=== PATIENT | male | born 1935 | race Caucasian/White ===

== ENCOUNTER 2021-06-19 09:01 | Inpatient (IN) | payer OTHER, MEDICAID ==
[~2021-06-19] VITALS: Ht 160 cm; Wt 63.5 kg
[2021-06-19 09:01] VITALS: BP_SYST 153
[2021-06-19] MEDS ORDERED: NACL 0.9% 1,000 ML IV ONE (09:30)
[2021-06-19 10:51] LABS: BASOPHILS % (AUTO) 0.4 % (0.0-2.0); EOSINOPHILS # (AUTO) 0.2 K/uL (0.0-0.4); EOSINOPHILS % (AUTO) 1.9 % (0.0-4.0); HEMATOCRIT 38.4 % (36-54); HEMOGLOBIN 12.9 g/dL (14.0-18.0); LYMPHOCYTES # (AUTO) 0.8 K/uL (1.0-5.5); LYMPHOCYTES % (AUTO) 9.1 % (20.5-51.5); MEAN CORPUSCULAR HEMOGLOBIN 31 pg (27-31); MEAN CORPUSCULAR HGB CONC 34 % (32-36); MEAN CORPUSCULAR VOLUME 91 fL (79.0-98.0); MONOCYTES # (AUTO) 0.4 K/uL (0.0-1.0); MONOCYTES % (AUTO) 4.4 % (1.7-9.3); NEUTROPHILS # (AUTO) 7.1 K/uL (1.8-7.7); NEUTROPHILS % (AUTO) 84.2 % (40.0-70.0); PLATELET COUNT (AUTO) 214 K/uL (130-430); RED BLOOD CELL COUNT(AUTO) 4.24 MIL/uL (4.2-6.2); RED CELL DISTRIBUTION WIDTH 14.3 % (9.0-15.0); WHITE BLOOD COUNT (AUTO) 8.4 K/uL (4.8-10.8)
[2021-06-19 11:05] LABS: ANION GAP 7 (5-15); CALCIUM 9.6 mg/dL (8.4-11.0); CHLORIDE 104 mmol/L (98-107); CREATININE 0.94 mg/dL (0.55-1.30); GLUCOSE 257 mg/dL (70-99); POTASSIUM 4.3 mmol/L (3.5-5.1); SODIUM SERUM 140 mmol/L (136-145); UREA NITROGEN, BLOOD 25 mg/dL (8-21)
[2021-06-19 11:09] LABS: ALANINE AMINOTRANSFERASE 19 U/L (12-78); ALBUMIN 3.5 g/dL (3.4-4.8); ASPARTATE AMINOTRANSFERASE 17 U/L (10-37); TOTAL BILIRUBIN 0.3 mg/dL (0.0-1.0)
[2021-06-19 11:13] LABS: ACETAMINOPHEN < 1 ug/mL (1-30)
[2021-06-19 11:24] LABS: INR 1.3 (0.80-1.20); PROTHROMBIN TIME 13.6 SECS (9.5-12.5)
[2021-06-19 11:32] LABS: ALCOHOL, BLOOD < 3 mg/dL (<10)
[2021-06-19] MEDS ORDERED: FAMO20TA8 PO (13:31)
[2021-06-19] MEDS ORDERED: ONDA-8 TL (13:31)
[2021-06-19] MEDS ORDERED: TEMA15CA5 PO (13:31)
[2021-06-19] MEDS ORDERED: HYDR-3917 PO (13:31)
[2021-06-19] MEDS ORDERED: CARB1TAB21 PO (13:31)
[2021-06-19] MEDS ORDERED: SSNOVOLOG SUBCUT (13:31)
[2021-06-19] MEDS ORDERED: LACT10SO6 PO (13:31)
[2021-06-19] MEDS ORDERED: ACET325T PO (13:31)
[2021-06-19] MEDS ORDERED: ENTA200T30 PO (13:31)
[2021-06-19] MEDS ORDERED: DOCU-144 PO (13:31)
[2021-06-19] MEDS ORDERED: NEU300 PO (13:31)
[2021-06-19] MEDS ORDERED: traMADol HCL HCL 50 MG TABLET (ULTRAM) PO ONE (14:00)
[2021-06-19 17:24] VITALS: BP_SYST 139
[2021-06-19 20:00] VITALS: BP_SYST 129
[2021-06-19] MEDS ORDERED: ACETAMINOPHEN 325 MG TABLET PO SCH (22:45)
[2021-06-19] MEDS ORDERED: HYDROcodone/ACETAMIN 5-325 MG TAB (NORCO/ VICODIN) PO PRN (22:45)
[2021-06-19] MEDS ORDERED: ONDANSETRON HCL 4 MG/2 ML VIAL IVP PRN (22:45)
[2021-06-19] MEDS ORDERED: ONDANSETRON 4 MG ODT TAB TL PRN (22:45)
[2021-06-19] MEDS ORDERED: NALOXONE HCL 0.4 MG/ML AMP (NARCAN) IVP PRN (22:45)
[2021-06-19] MEDS ORDERED: TEMAZEPAM 15 MG CAPSULE PO SCH (22:45)
[2021-06-20 00:13] VITALS: BP_SYST 148
[2021-06-20 01:41] VITALS: BP_SYST 129
[2021-06-20] MEDS: NORMAL SALINE 5 ML DISP.SYRIN IVF SCH ×3 (06:00→21:36)
[2021-06-20] MEDS: INSULIN REGULAR, HUMAN 100 UNITS/ML, 10 ML VIAL (humuLIN R) SUBCUT PRN ×4 (06:15→21:44)
[2021-06-20 06:54] LABS: BASOPHILS % (AUTO) 0.8 % (0.0-2.0); EOSINOPHILS # (AUTO) 0.4 K/uL (0.0-0.4); EOSINOPHILS % (AUTO) 6.3 % (0.0-4.0); HEMATOCRIT 38.3 % (36-54); LYMPHOCYTES # (AUTO) 1.4 K/uL (1.0-5.5); LYMPHOCYTES % (AUTO) 22.7 % (20.5-51.5); MEAN CORPUSCULAR HEMOGLOBIN 30 pg (27-31); MEAN CORPUSCULAR HGB CONC 34 % (32-36); MEAN CORPUSCULAR VOLUME 90 fL (79.0-98.0); MONOCYTES # (AUTO) 0.4 K/uL (0.0-1.0); MONOCYTES % (AUTO) 6.5 % (1.7-9.3); NEUTROPHILS # (AUTO) 3.9 K/uL (1.8-7.7); NEUTROPHILS % (AUTO) 63.7 % (40.0-70.0); PLATELET COUNT (AUTO) 222 K/uL (130-430); RED BLOOD CELL COUNT(AUTO) 4.28 MIL/uL (4.2-6.2); WHITE BLOOD COUNT (AUTO) 6.1 K/uL (4.8-10.8)
[2021-06-20 08:00] VITALS: BP_SYST 118
[2021-06-20] MEDS: GABAPENTIN 300 MG CAPSULE PO SCH ×2 (08:26→21:35)
[2021-06-20] MEDS: DOCUSATE SODIUM 100 MG CAPSULE PO SCH ×2 (08:28→21:00)
[2021-06-20] MEDS: CARBIDOPA/LEVODOPA 25/100 MG TABLET PO SCH ×3 (08:28→15:00)
[2021-06-20] MEDS ORDERED: CARBIDOPA/LEVODOPA 25/100 MG TABLET ONE (08:52)
[2021-06-20 08:54] LABS: ALANINE AMINOTRANSFERASE 21 U/L (12-78); ALBUMIN 3.3 g/dL (3.4-4.8); ANION GAP 9 (5-15); ASPARTATE AMINOTRANSFERASE 19 U/L (10-37); CALCIUM 9.1 mg/dL (8.4-11.0); CHLORIDE 103 mmol/L (98-107); CREATININE 0.76 mg/dL (0.55-1.30); GLUCOSE 262 mg/dL (70-99); PHOSPHORUS 2.8 mg/dL (2.7-4.5); POTASSIUM 4.1 mmol/L (3.5-5.1); SODIUM SERUM 140 mmol/L (136-145); TOTAL BILIRUBIN 0.4 mg/dL (0.0-1.0); UREA NITROGEN, BLOOD 19 mg/dL (8-21)
[2021-06-20] MEDS ORDERED: LACTULOSE 20 GM/30 ML UDC PO SCH (09:00)
[2021-06-20] MEDS ORDERED: COMTAN 200 MG TAB PO SCH (09:00)
[2021-06-20] MEDS ORDERED: FAMOTIDINE 20 MG TABLET PO SCH (09:00)
[2021-06-20 12:16] VITALS: BP_SYST 132
[2021-06-20 16:23] VITALS: BP_SYST 121
[2021-06-20 20:00] VITALS: BP_SYST 118
[2021-06-20] MEDS ORDERED: CARBIDOPA/LEVODOPA 25/250 MG TABLET PO SCH (21:00)
[2021-06-21 00:30] VITALS: BP_SYST 133
[2021-06-21] MEDS: NORMAL SALINE 5 ML DISP.SYRIN IVF SCH (05:52)
[2021-06-21] MEDS: INSULIN REGULAR, HUMAN 100 UNITS/ML, 10 ML VIAL (humuLIN R) SUBCUT PRN (05:53)
[2021-06-21 07:51] LABS: BASOPHILS % (AUTO) 0.5 % (0.0-2.0); EOSINOPHILS # (AUTO) 0.4 K/uL (0.0-0.4); HEMATOCRIT 37.3 % (36-54); HEMOGLOBIN 12.7 g/dL (14.0-18.0); LYMPHOCYTES # (AUTO) 1.5 K/uL (1.0-5.5); LYMPHOCYTES % (AUTO) 28.6 % (20.5-51.5); MEAN CORPUSCULAR HEMOGLOBIN 31 pg (27-31); MEAN CORPUSCULAR HGB CONC 34 % (32-36); MEAN CORPUSCULAR VOLUME 90 fL (79.0-98.0); MONOCYTES # (AUTO) 0.4 K/uL (0.0-1.0); MONOCYTES % (AUTO) 7.6 % (1.7-9.3); NEUTROPHILS # (AUTO) 2.9 K/uL (1.8-7.7); NEUTROPHILS % (AUTO) 55.3 % (40.0-70.0); PLATELET COUNT (AUTO) 208 K/uL (130-430); RED BLOOD CELL COUNT(AUTO) 4.15 MIL/uL (4.2-6.2); RED CELL DISTRIBUTION WIDTH 14.2 % (9.0-15.0); WHITE BLOOD COUNT (AUTO) 5.2 K/uL (4.8-10.8)
[2021-06-21 09:12] LABS: ANION GAP 10 (5-15); CALCIUM 8.1 mg/dL (8.4-11.0); CHLORIDE 103 mmol/L (98-107); CREATININE 0.96 mg/dL (0.55-1.30); GLUCOSE 194 mg/dL (70-99); POTASSIUM 3.6 mmol/L (3.5-5.1); SODIUM SERUM 141 mmol/L (136-145); UREA NITROGEN, BLOOD 21 mg/dL (8-21)
[2021-06-21 12:59] VITALS: BP_SYST 122
[2021-06-21 13:54] VITALS: BP_SYST 122
[2021-06-21 14:25] VITALS: BP_SYST 130
[2021-06-21 16:36] VITALS: BP_SYST 132
== END 2021-06-21 14:25 | DRG 312 ==
LOC: SED 09:01 → STU 14:40
PROVIDERS: ADMIT Preventive Medicine Preventive Medicine/Occupational Environmental Medicine; ATTEND Preventive Medicine Preventive Medicine/Occupational Environmental Medicine
DX: R55 Syncope and collapse (principal); G47.00 Insomnia, unspecified; G20 Parkinson's disease; K59.00 Constipation, unspecified; I25.10 Atherosclerotic heart disease of native coronary artery without angina pectoris; E11.51 Type 2 diabetes mellitus with diabetic peripheral angiopathy without gangrene; K21.9 Gastro-esophageal reflux disease without esophagitis; M19.90 Unspecified osteoarthritis, unspecified site; R26.9 Unspecified abnormalities of gait and mobility; Z20.822 Contact with and (suspected) exposure to COVID-19; Z86.73 Personal history of transient ischemic attack (TIA), and cerebral infarction without residual deficits
CPT/HCPCS: 36415; 70450-TC; 71045; 72131; 72192-TC; 76376; 80048; 80053; 82009; 82272; 82962; 83605; 83735; 84100; 84484; 85025; 85610-TC; 85730-TC; 87040; 87081; 93005; 93306; 93880; 99285; G0378; G0480; G0481; G0482